=== PATIENT | female | born 1995 | race Caucasian/White ===

== ENCOUNTER 2016-07-13 09:30 | Emergency (ER) | payer MEDICAID, OTHER ==
[2016-07-13 09:59] VITALS: RESP 18
--- NOTE | 2016-07-13 11:22 | C.PDOC ---
Time Seen by Provider: 07/13/16 10:40 Chief Complaint (Nursing): Cough, Cold, Congestion History Per: Patient Onset/Duration Of Symptoms: Days (about 2 weeks) Current Symptoms Are (Timing): Still Present Associated Symptoms: Fever, Cough, Sputum, Nasal Congestion Ear Symptoms: Bilateral: None Severity: Moderate Additional History Per: Prior Records Past Medical History Reviewed: Historical Data, Nursing Documentation, Vital Signs Vital Signs: Last Vital Signs Temp 100.5 F H 07/13/16 09:58 Pulse 115 H 07/13/16 09:58 Resp 18 07/13/16 09:58 BP 121/84 07/13/16 09:58 Pulse Ox 95 07/13/16 09:58 - Medical History PMH: Bronchitis (?) Surgical History: Appendectomy Family History: States: Unknown Family Hx - Social History Hx Tobacco Use: No Hx Alcohol Use: No Hx Substance Use: No - Immunization History Hx Tetanus Toxoid Vaccination: No Hx Influenza Vaccination: No Hx Pneumococcal Vaccination: No Review Of Systems Except As Marked, All Systems Reviewed And Found Negative. Constitutional: Positive for: Fever, Malaise ENT: Positive for: Nose Congestion Cardiovascular: Negative for: Chest Pain Respiratory: Positive for: Cough, Sputum. Negative for: Shortness of Breath, Hemoptysis Gastrointestinal: Negative for: Abdominal Pain, Diarrhea Genitourinary: Negative for: Dysuria Musculoskeletal: Negative for: Neck Pain, Back Pain Skin: Negative for: Rash Neurological: Negative for: Weakness, Numbness, Seizures, Altered Mental Status Physical Exam - Physical Exam Appears: Non-toxic, No Acute Distress Skin: Normal Color, Warm, Dry, No Rash Head: Atraumatic, Normacephalic Eye(s): bilateral: PERRL, EOMI Ear(s): Bilateral: Normal Oral Mucosa: Moist Throat: Erythema, No Exudate, No Drooling, No Mass Neck: Normal ROM, Supple Lymphatic: No Adenopathy Cardiovascular: Rhythm Regular Respiratory: Normal Breath Sounds, No Accessory Muscle Use Gastrointestinal/Abdominal: Soft, No Tenderness Back: No CVA Tenderness Extremity: Normal ROM Neurological/Psych: Oriented x3, Normal Speech, Normal Cognition, Normal Motor, Normal Sensation ED Course And Treatment O2 Sat by Pulse Oximetry: 95 Pulse Ox Interpretation: Normal Reassessment Condition: Improved Disposition Counseled Patient/Family Regarding: Diagnosis, Need For Followup, Rx Given - Disposition Referrals: [facility] [Outside] Disposition Time: 11:22 Condition: STABLE Additional Instructions: Drink plenty of fluids. Follow up with your doctor or in the clinic within 3-4 days. Return to the ER if you develop high fever, shortness of breath, lethargy , worsening of symptoms or if you have any other concerns. Prescriptions: Azithromycin [Zithromax] 1 dose PO DAILY #1 pkt Instructions: Acute Bronchitis (ED) Print Language: ICELANDIC - Clinical Impression Clinical Impression: Bronchitis, Upper respiratory infection
[2016-07-13 11:37] VITALS: BP 119/69; PULSE 92; TEMP 100; O2SAT 98
== END 2016-07-13 11:51 | disposition home or self-care (01) ==
LOC: C.ER 09:30 → SUPCPDRO 09:30 → C.ER 11:51
DX: J06.9 Acute upper respiratory infection, unspecified (principal); J40 Bronchitis, not specified as acute or chronic